=== PATIENT | male | born 1950 | race Caucasian/White ===

== ENCOUNTER 2017-08-18 15:17 | Emergency (ER) | payer SELFPAY ==
[~2017-08-18] VITALS: Ht 162.6 cm; Wt 80.0 kg
[2017-08-18 16:03] VITALS: BP 144/76; PULSE 81; RESP 18; TEMP 99.1; O2SAT 93
--- NOTE | 2017-08-18 16:43 | RADRPT ---
EXAM DATE: 08/18/2017 4:27 PM EDT AGE/SEX: 67 years / Male INDICATIONS: Cough, short of breath, left flank pain. CLINICAL DATA: This is the patient's initial encounter. Patient reports that signs and symptoms have been present for 1 week and indicates a pain score of 5/10. MEDICAL/SURGICAL HISTORY: None. None. COMPARISON: No prior [facility] exams available for comparison. FINDINGS: PA and lateral views of the chest demonstrate left basilar consolidation/lateral pleural thickening. Right lung is clear. Heart size is normal. Degenerative spurring of the dorsal spine. Osseous structu res are otherwise intact CONCLUSION: 1. Left basilar consolidation with lateral pleural thickening suggesting a loculated effusion. 2. Recommend follow-up plain film of the chest after therapy to ensure resolution. Electronically signed by: Kenneth Dia MD 08/18/2017 4:42 PM EDT
[2017-08-18 18:17] LABS: AUTOMATED NEUTROPHIL # 7.1 TH/MM3 (1.8-7.7); BASOPHIL # 0.1 TH/MM3 (0-0.2); BASOPHIL % 0.8 % (0.0-2.0); EOSINOPHIL # 0.3 TH/MM3 (0-0.4); EOSINOPHIL % 2.6 % (0.0-4.0); HEMATOCRIT 41.8 % (39.0-51.0); HEMOGLOBIN 14.4 GM/DL (13.0-17.0); LYMPH % 15.9 % (9.0-44.0); LYMPHOCYTE # 1.6 TH/MM3 (1.0-4.8); MEAN CELL VOLUME 85.8 FL (80.0-100.0); MEAN CORPUSCULAR HEMOGLOBIN 29.5 PG (27.0-34.0); MEAN CORPUSCULAR HGB CONC 34.4 % (32.0-36.0); MONOCYTE # 0.9 TH/MM3 (0-0.9); NEUT % 71.7 % (16.0-70.0); PLATELET COUNT 230 TH/MM3 (150-450); RED BLOOD COUNT 4.88 MIL/MM3 (4.50-5.90); RED CELL DISTRIBUTION WIDTH 12.9 % (11.6-17.2)
[2017-08-18 18:47] LABS: BICARBONATE 26.9 MEQ/L (21.0-32.0); CREATININE 1.03 MG/DL (0.60-1.30)
[2017-08-18] MEDS ORDERED: cefTRIAXone INJ 1,000 MG in SODIUM CHLORIDE 0.9% INJ 100 ML IV ONE (19:30)
[2017-08-18] MEDS ORDERED: AZITHROMYCIN INJ 500 MG in SODIUM CHLOR 0.9% 250 ML INJ 250 ML IV ONE (19:30)
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
[2017-08-18 20:04] LABS: TROPONIN I LESS THAN 0.02 NG/ML (0.02-0.05)
--- NOTE | 2017-08-18 20:19 | RADRPT ---
EXAM DATE: 08/18/2017 7:56 PM EDT AGE/SEX: 67 years / Male INDICATIONS: Left sided chest pain, shortness of breath, dark brown sputum. Evaluate for pneumonia. CLINICAL DATA: This is the patient's initial encounter. Patient reports that signs and symptoms have been present for 1 day and indicates a pain score of 5/10. MEDICAL/SURGICAL HISTORY: None. None. RADIATION DOSE: 12.19 CTDI (mGy) COMPARISON: No prior [facility] exams available for comparison. TECHNIQUE: Multiple contiguous axial images were obtained through the chest without contrast. Image s were obtained in suspended respiration using multiple row detector helical technique. Using automa lainey exposure control and adjustment of the mA and/or kV according to patient size, radiation dose was kept as low as reasonably achievable to obtain optimal diagnostic quality images. FINDINGS: There is a small left-sided pleural effusion. There is subsegmental airspace disease in the left lung base. Minimal right basilar atelectasis. No hilar, mediastinal or axillary adenopathy. No pericardial effusion. 1.7 cm cyst right lobe liver. No acute findings in the upper abdomen. CONCLUSION: 1. Small left-sided pleural effusion with patchy basilar airspace disease on the left most character istic of a bronchopneumonia with small left parapneumonic effusion. Electronically signed by: Jeffry Hoyt MD 08/18/2017 8:18 PM EDT
[2017-08-18 20:50] VITALS: BP 129/80; PULSE 88; RESP 22; O2SAT 94
[2017-08-18 21:00] VITALS: BP 132/78; PULSE 88; RESP 14; O2SAT 93
[2017-08-18] MEDS ORDERED: ROBILIQ PO (21:02)
[2017-08-18] MEDS ORDERED: IBUP200T47 PO (21:02)
[2017-08-18] MEDS ORDERED: LEVA750T9 PO (21:22)
[2017-08-18 22:00] VITALS: BP 127/77; PULSE 88; RESP 20; O2SAT 94
[2017-08-18 23:05] VITALS: BP 122/75
--- NOTE | 2017-08-19 15:55 | EKG ---
Date Performed: 08/18/2017 Time Performed: 16:32:28 PTAGE: 67 years EKG: Sinus rhythm NORMAL ECG Since the PREVIOUS TRACING , no significant change noted PREVIOUS TRACIN09/20/2005 13.01 DOCTOR: Tiffany Garcia Interpretating Date/Time 08/19/2017 15:54:07
== END 2017-08-18 23:15 | disposition home or self-care (01) ==
LOC: NEPE 15:17
DX: J18.1 Lobar pneumonia, unspecified organism (principal); J90 Pleural effusion, not elsewhere classified; Z87.891 Personal history of nicotine dependence
CPT/HCPCS: 71046; 71250; 80048; 82550; 83605; 83880; 84484; 85025; 87040; 93005; 96365; 96366; 96368; 99285; J0456; J0696; J7050